=== PATIENT | female | born 1990 | race Caucasian/White ===

== ENCOUNTER → 2018-10-19 | Outpatient (CLI) | payer OTHER, BC ==
--- NOTE | 2018-10-19 17:23 | RADIOLOGY IMAGING REPORT ---
FACILITY: [facility] PATIENT NAME: Sara Daley : 1990 MR: [id number] V: [id number] EXAM DATE: ORDERING PHYSICIAN: STEPHANIA BARRIENTOS TECHNOLOGIST: Location: [facility] [place] Patient: Sara Daley : 1990 Visit/Account:[id number] Date of Sevice: 10/19/2018 ANKLE 3 VIEW MIN RIGHT, FOOT 3 VIEWS RIGHT INDICATION: Pain after injury COMPARISON: None Available FINDINGS: No evidence of fracture, dislocation, or acute osseous abnormality of the right ankle and foot. The ankle mortise is symmetric. There is no significant ankle joint effusion. There is no focal soft tissue abnormality. No evidence of radiopaque foreign body. IMPRESSION: 1. No acute osseous abnormality of the right ankle and foot Report Dictated By: Josh Hodges at 10/19/2018 5:15 PM Report E-Signed By: Josh Hodges at 10/19/2018 5:19 PM WSN:[id number]
--- NOTE | 2018-10-19 17:23 | RADIOLOGY IMAGING REPORT ---
[place] [facility] [place]: Sara Daley : 1990 MR: [id number] V: [id number] EXAM DATE: ORDERING PHYSICIAN: STEPHANIA BARRIENTOS TECHNOLOGIST: Location: [facility] Patient: Sara Daley : 1990 Visit/Account:[id number] Date of Sevice: 10/19/2018 ANKLE 3 VIEW MIN RIGHT, FOOT 3 VIEWS RIGHT INDICATION: Pain after injury COMPARISON: None Available FINDINGS: No evidence of fracture, dislocation, or acute osseous abnormality of the right ankle and foot. The ankle mortise is symmetric. There is no significant ankle joint effusion. There is no focal soft tissue abnormality. No evidence of radiopaque foreign body. IMPRESSION: 1. No acute osseous abnormality of the right ankle and foot Report Dictated By: Josh Hodges at 10/19/2018 5:15 PM Report E-Signed By: Josh Hodges at 10/19/2018 5:19 PM WSN:[id number]
== END ==
LOC: RAD 16:36
PROVIDERS: ATTEND Nurse Practitioner Family
DX: S99.921A Unspecified injury of right foot, initial encounter (principal)

== ENCOUNTER 2018-10-21 07:04 | Emergency (ER) | payer OTHER, BC ==
[2018-10-21] MEDS ORDERED: ETON1VAG7 VG (07:11)
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
[2018-10-21 07:38] LABS: PLATELET COUNT, AUTOMATED 258 K/uL (150-450)
--- NOTE | 2018-10-21 07:39 | EKG ---
FACILITY: [facility] - [place] PATIENT NAME: EDMUND MARINO : [id number] MR: [id number] V: [id number] EXAM DATE: ORDERING PHYSICIAN: BENNY SRIVASTAVA TECHNOLOGIST: BILL Carroll Reason : SOB Blood Pressure : / mmHG Vent. Rate : 085 BPM Atrial Rate : 085 BPM P-R Int : 102 ms QRS Dur : 116 ms QT Int : 398 ms P-R-T Axes : 025 -12 040 degrees QTc Int : 473 ms Normal sinus rhythm with sinus arrhythmia [id number] Abnormal ECG No previous ECGs available Confirmed by MACKENZIE ISLAS ([id number]) on 10/21/2018 3:22:08 PM Referred By: Confirmed By:MACKENZIE ISLAS
[2018-10-21] MEDS ORDERED: IOPAMIDOL 76% 150 ML INFUS BTL 150 ML ONE (07:45)
[2018-10-21] MEDS ORDERED: NS(*) 0.9% 50 ML BAG 50 ML ONE (07:45)
--- NOTE | 2018-10-21 08:57 | RADIOLOGY IMAGING REPORT ---
FACILITY: [facility] - [place] PATIENT NAME: Sara Daley : 1990 MR: [id number] V: [id number] EXAM DATE: ORDERING PHYSICIAN: BENNY SRIVASTAVA TECHNOLOGIST: [place] [facility] [place]: Sara Daley : 1990 Visit/Account:[id number] Date of Sevice: 10/21/2018 EXAMINATION: CT CHEST PULMONARY ANGIOGRAM COMPARISON: None available HISTORY: Shortness of breath and cough. PROCEDURE: Pulmonary arterial phase imaging of the chest with 75 mL intravenous Isovue 370. Reconstru ction of the source data set includes multiplanar 2D in the sagittal and coronal planes, and 3D recon structed coronal slab MIP series. One of the following dose optimization techniques was utilized in the performance of this exam: Autom ated exposure control; adjustment of the mA and/or kV according to the patient's size; or use of an i terative reconstruction technique. Specific details can be referenced in the facility's radiology C T exam operational policy. FINDINGS: Pulmonary vasculature: There is good contrast opacification of the pulmonary arterial system. No pul monary embolism. Main pulmonary artery size is normal. Cardiac and mediastinum: Cardiac chamber size is normal. No pericardial effusion. No thoracic aorti c aneurysm. Lymph nodes: Negative. Lungs and pleura: Numerous small thin-walled cysts throughout both lungs. No consolidation or nodule. No pneumothorax, edema, or effusion. Airways: Negative. Visualized upper abdomen: Hepatic steatosis. At least 4 small fat-containing lesions in the left kidn ey are suggestive of angiomyolipomas. No acute findings. Osseous structures: Negative. IMPRESSION: 1. No pulmonary embolism or evidence of acute cardiopulmonary disease. 2. 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 3. Hepatic steatosis. Report Dictated By: Jair Inman MD at 10/21/2018 8:36 AM Report E-Signed By: Jair Inman MD at 10/21/2018 8:52 AM WSN:[id number]
[2018-10-21 09:15] VITALS: BP 128/86
== END 2018-10-21 09:27 | disposition home or self-care (01) ==
LOC: ER 07:10
DX: R06.02 Shortness of breath (principal)
CPT/HCPCS: 71275; 81025; 83880; 84484; 85025; 93005; 99284; J7050; Q9967; 82040; 82247; 82310; 82374; 82435; 82565; 82947; 84075; 84132; 84155; 84295; 84450; 84460; 84520